=== PATIENT | female | born 1970 | race Caucasian/White ===

== ENCOUNTER → 2016-11-10 | Outpatient (CLI) | payer OTHER ==
[~2016-11-10] MED LIST: IBUPROFEN800 MG PO; LEVAQUIN500 MG PO; NUCYNTA50 MG PO; TYLENOL EXTRA500 MG PO
== END | disposition disaster alternative care site (69) ==
LOC: GRAD 10:35
DX: M54.5 Low back pain (principal); R31.29 Other microscopic hematuria

== ENCOUNTER → 2016-11-15 | Outpatient (CLI) | payer OTHER | END | disposition disaster alternative care site (69) | LOC: GBCOE 16:20 | DX: Z12.31 Encounter for screening mammogram for malignant neoplasm of breast (principal) | CPT/HCPCS: G0202 ==

== ENCOUNTER → 2016-12-13 | Outpatient (CLI) | payer OTHER ==
[2016-12-13 07:43] LABS: CREATININE 0.6 mg/dL (0.5-1.1)
[2016-12-13 07:47] LABS: ESTIMATED GFR (MDRD EQUATION) > 60
== END | disposition disaster alternative care site (69) ==
LOC: GLAB 07:00 → GRAD 08:00
PROVIDERS: Orthopaedic Surgery Orthopaedic Surgery of the Spine
DX: M54.16 Radiculopathy, lumbar region (principal); Z98.890 Other specified postprocedural states